=== PATIENT | female | born 1975 | race Caucasian/White ===

== ENCOUNTER → 2020-12-26 | Outpatient (CLI) | payer OTHER ==
[~2020-12-26] MED LIST: AZITHROMYCIN500 MG PO; OMNICEF 300 MG300 MG PO; PROVENTIL HFA6.7 GM INH
== END ==
LOC: KOH-I 15:46
DX: M25.562 Pain in left knee (principal); M25.511 Pain in right shoulder; M25.521 Pain in right elbow
CPT/HCPCS: 73030; 73080; 73100; 73562

== ENCOUNTER → 2021-01-16 | Outpatient (CLI) | payer OTHER | LOC: KOH-I 15:00 | DX: M25.561 Pain in right knee (principal); M54.2 Cervicalgia; M47.812 Spondylosis without myelopathy or radiculopathy, cervical region; M17.11 Unilateral primary osteoarthritis, right knee | CPT/HCPCS: 72050; 73560 ==